=== PATIENT | female | born 1980 | race Caucasian/White ===

== ENCOUNTER 2019-08-08 01:52 | Inpatient (IN) ==
[2019-08-02 10:10] LABS: URINE SOURCE VOIDED
[2019-08-02 10:13] LABS: BASO# 0.02 X1000 (0.0-0.2); BASO% 0.3 % (0.0-0.8); EOS# 0.27 X1000 (0.0-0.7); EOS% 4.5 % (0.0-10.0); HEMATOCRIT 39.5 % (37.0-47.0); HEMOGLOBIN 13.1 g/dL (12.0-16.0); LYMPH# 1.96 X1000 (1.2-3.4); LYMPH% 32.5 % (20.5-51.1); MCH 29.5 PG (27-31); MCHC 33.2 g/dL (33-37); MONO% 8.3 % (1.7-9.3); MPV 9.2 FL (7.4-10.4); NEUT# 3.28 X1000 (1.4-6.5); NEUT% 54.4 % (42.2-75.2); PLT 263 X1000 (130-400); RBC 4.44 XMIL (4.2-5.4); RDW 12.5 % (11.5-14.5); WBC 6.03 X1000 (4.8-10.8)
[2019-08-02 10:17] LABS: BILIRUBIN URINE NEGATIVE (NEGATIVE); BLOOD URINE NEGATIVE (NEGATIVE); COLOR STRAW; GLUCOSE URINE NEGATIVE (NEGATIVE); KETONE URINE NEGATIVE (NEGATIVE); LEUKOCYTES URINE NEGATIVE (NEGATIVE); NITRITE URINE NEGATIVE (NEGATIVE); PROTEIN URINE NEGATIVE (NEGATIVE); SP GRAVITY URINE 1.005; TURBIDITY URINE CLEAR (CLEAR); UROBILINOGEN URINE NORMAL (NORMAL)
[2019-08-02 10:18] LABS: UR EPITHELIAL CELLS <10 /HPF (<10); URINE BACTERIA NEGATIVE /HPF; URINE RBC <10 /HPF (<10); URINE WBC <10 /HPF (<10)
--- NOTE | 2019-08-07 12:06 | HISTORY AND PHYSICAL ---
HISTORY OF PRESENT ILLNESS: The patient is a 39-year-old, white female, G2, P2, who has been battling irregular menses and dysmenorrhea for many years, has failed medical therapy, and recently had an endometrial ablation that did not result in success for her, and after consideration of alternatives, she has decided to proceed with hysterectomy. The patient is scheduled for surgery on 08/08/2019. PAST MEDICAL HISTORY: Significant for depression. PAST SURGICAL HISTORY: Tubal ligation, breast reduction, and endometrial ablation. PAST OB HISTORY: G2, P2. Spontaneous vaginal delivery x2. PSYCHOLOGIST PERSONNEL HISTORY: Menarche at age 11. REVIEW OF SYSTEMS: All systems were reviewed and noncontributory. FAMILY HISTORY: Significant for diabetes mellitus. SOCIAL HISTORY: Tobacco use: None. Alcohol use: None. MEDICATIONS: Celexa and Motrin. ALLERGIES: No known drug allergies. PHYSICAL EXAMINATION: VITAL SIGNS: Height 5 feet 9 inches, weight 223 pounds. Temp 98 degrees, pulse of 84, blood pressure 120/74, respirations 20. HEENT: Pupils equal, round, reactive to light and accommodation. Extraocular movements intact. Oropharynx clear. NECK: Supple. No thyromegaly. LUNGS: Clear to auscultation. HEART: Regular rate and rhythm. ABDOMEN: Bowel sounds positive. Soft, nontender. EXTREMITIES: No clubbing, cyanosis, or edema noted. NEUROLOGIC: Cranial nerves II through XII are grossly intact. Motor 5/5. ASSESSMENT AND PLAN: A 39-year-old white female with long-standing issues with irregular menses and dysmenorrhea, and has failed medical therapy as well as previous surgical therapy, and will proceed with hysterectomy and also bilateral salpingectomy. Patient counseled about the risks of surgery, including bleeding, infection, bowel or bladder injury. Surgery is scheduled for 08/08/2019. cc: Favian Alicia III, MD
[2019-08-08] MEDS ORDERED: ROBINUL ONE ×2 (07:57→09:43)
[2019-08-08] MEDS ORDERED: QUELICIN (DOSE) ONE (07:57)
[2019-08-08] MEDS ORDERED: XYLOCAINE-MPF 2% ONE (07:59)
[2019-08-08] MEDS ORDERED: DIPRIVAN 1% ONE (07:59)
[2019-08-08] MEDS ORDERED: LR 1,000 ML ONE ×2 (08:25→12:33)
[2019-08-08] MEDS ORDERED: KEFZOL 1 GM/D5W 2 GM/100 ML IVPB ONE (08:25)
[2019-08-08] MEDS ORDERED: FENTANYL ONE (09:34)
[2019-08-08] MEDS ORDERED: STERILE WATER INJ. ONE (09:43)
[2019-08-08] MEDS ORDERED: NORCURON ONE (09:43)
[2019-08-08] MEDS ORDERED: DECADRON ONE (09:43)
[2019-08-08] MEDS ORDERED: ZOFRAN ONE (09:43)
[2019-08-08] MEDS ORDERED: NEOSTIGMINE ONE (09:49)
[2019-08-08] MEDS ORDERED: EPHEDRINE ONE (10:06)
[2019-08-08 10:20] LABS: URINE SOURCE CATH
[2019-08-08 10:37] LABS: BILIRUBIN URINE NEGATIVE (NEGATIVE); BLOOD URINE NEGATIVE (NEGATIVE); COLOR YELLOW; GLUCOSE URINE NEGATIVE (NEGATIVE); KETONE URINE NEGATIVE (NEGATIVE); LEUKOCYTES URINE NEGATIVE (NEGATIVE); NITRITE URINE NEGATIVE (NEGATIVE); PROTEIN URINE NEGATIVE (NEGATIVE); SP GRAVITY URINE 1.013; TURBIDITY URINE CLEAR (CLEAR); UROBILINOGEN URINE NORMAL (NORMAL)
[2019-08-08 10:41] LABS: UR EPITHELIAL CELLS <10 /HPF (<10); URINE BACTERIA NEGATIVE /HPF; URINE RBC <10 /HPF (<10); URINE WBC <10 /HPF (<10)
[2019-08-08] MEDS ORDERED: TORADOL ONE (11:35)
[2019-08-08] MEDS ORDERED: PHENERGAN ONE (12:32)
[2019-08-08] MEDS ORDERED: DILAUDID PCA VIAL ONE (12:33)
[2019-08-08] MEDS: DILAUDID ONE ×2 (12:34→12:39)
[2019-08-08] MEDS ORDERED: MORPHINE IM PRN (12:41)
[2019-08-08] MEDS ORDERED: NORCO-5 PO PRN (12:41)
[2019-08-08] MEDS ORDERED: LEVSIN-SL SL PRN (12:41)
[2019-08-08] MEDS ORDERED: ZOFRAN IV PRN (12:41)
[2019-08-08] MEDS ORDERED: PHENERGAN IM PRN (12:41)
[2019-08-08] MEDS ORDERED: SODIUM CHLORIDE 0.9% INJ PRN (13:00)
[2019-08-08] MEDS ORDERED: DILAUDID PCA VIAL IV PRN (13:00)
[2019-08-08] MEDS ORDERED: NARCAN IV PRN (13:00)
[2019-08-08] MEDS ORDERED: PHENERGAN IV PRN (13:00)
[2019-08-08] MEDS: LR 1,000 ML IV SCH ×3 (13:26→20:26)
[2019-08-08] MEDS: MYLICON PO SCH ×4 (13:26→20:15)
[2019-08-08] MEDS: OFIRMEV 1000 MG/ISOTONIC SOLN 1,000 MG/100 ML BOTTLE IV SCH ×2 (13:59→19:44)
[2019-08-08] MEDS: TORADOL IV SCH (17:55)
[2019-08-08] MEDS: PERIDEX MT SCH ×2 (19:44→20:15)
[2019-08-08] MEDS: COLACE PO SCH ×2 (19:44→20:15)
[2019-08-08] MEDS: BENADRYL IV PRN (19:55)
--- NOTE | 2019-08-08 23:07 | OPERATIVE NOTE ---
PROCEDURE DATE: 08/08/2019 PREOPERATIVE DIAGNOSIS: Irregular menses, dysmenorrhea, not responsive to medical and surgical therapy. POSTOPERATIVE DIAGNOSIS: Irregular menses, dysmenorrhea, not responsive to medical and surgical therapy. PROCEDURE: Total abdominal hysterectomy, bilateral salpingectomy. SURGEON: Favian Alicia III, MD LANDSCAPE SUPERVISOR: Lyn Jackson DO ANESTHESIA: General. ANESTHESIOLOGIST: Dr. Babin. FINDINGS: Normal-appearing uterus, tubes and ovaries. COMPLICATIONS: None. ESTIMATED BLOOD LOSS: 400 mL SPECIMENS REMOVED: Uterus with cervix. Also bilateral distal fallopian tubes. DRAINS: Atwood to straight drain. COUNTS: All counts were correct x3. INDICATIONS: The patient is a 39-year-old white female G2, P2, status post tubal ligation, who has been fighting irregular menses and dysmenorrhea for many years. She has failed medical therapy as well as previous surgical therapy using endometrial ablation. The patient has expressed a strong desire for a permanent solution. Patient counseled about the risks of surgery including bleeding, infection and bowel or bladder injury. DESCRIPTION OF PROCEDURE: The patient was taken to OR, placed in supine position. General anesthesia was employed. She was then prepped and draped in sterile fashion with placement of Atwood catheter. A Pfannenstiel skin incision was made using a #10 scalpel. This was taken down sharply to the fascial layer. A small audrey was made in the rectus fascia. The fascial incision was extended bilaterally by curved Álvarez scissors and pickups. Then blunt and sharp dissection of the superior and inferior aspects of the rectus fascia was performed. The rectus muscle was divided midline and the peritoneal layer was entered bluntly. The peritoneal incision was then extended superiorly and inferiorly, with care taken to avoid the bladder. At this point in time, an O'Morris-O'Pedroza retractor was placed into the abdomen and a bladder blade was placed along with the upper blade, able to visualize the pelvic field. Uterus and ovaries were noted to be normal. The tubes had evidence of prior tubal ligation and only distal segments remained. At this point in time the round ligaments were isolated, grabbed with Darcy clamps and then electrocautery was used to cut between the clamps. Then 0 Vicryl suture was then used in transfixing fashion on both sides, and these were then tagged for anatomical purposes. Then Darcy free space was entered on both sides. Then a Darcy clamp was placed on the uterine side, Tahmina clamp was placed across the utero-ovarian ligament and this was cut, then ligated using 0 Vicryl in a transfixing stitch, followed with a free tie. This was performed on both sides. Good hemostasis was noted. The bladder reflection was created, then also dissected posteriorly. On both sides I clamped across the uterine vessels at the level of the cervix, and then this was cut with Álvarez scissors and ligated using 0 chromic on both sides. I then continued working down the cervix until the end, with ligating stitches of 0 chromic and then curved Tahmina clamps across the cervix. The uterus was then cut away from the cervix to allow more freedom. Then the cervix was clamped around using curved Tahmina clamps and then ligated. The Bella scissors were used to free the cervix up from the vaginal tissue. The vaginal cuff was then ligated using 0 chromic and a Tahmina stitch on both sides, then a [id number] stitch in the middle to close the vaginal cuff. Irrigation at this point in time revealed a small area of oozing underneath the bladder reflection. This was made hemostatic using electrocautery. The bilateral distal fallopian tube segments were then dissected off with Metzenbaum scissors and then clamped with Tahmina clamps on both sides. This was then cut and sewn with 0 Vicryl on both sides in a transfixing fashion, and good hemostasis was noted. Irrigation was then employed and good hemostasis was noted. The peritoneal layer was then closed using 2-0 chromic in a running fashion x1. The fascial layer was then closed using 0 Maxon in a running fashion x1. The subcutaneous layer was irrigated copiously and then electrocautery was used to obtain hemostasis. Then 2 subcutaneous interrupted stitches of 2-0 chromic were used. At this point in time the skin was reapproximated using carlotta. The patient tolerated the procedure well and was taken to the recovery room in stable condition. All counts were correct x3. cc: MD RAZIA Andrea III
[2019-08-09] MEDS: OFIRMEV 1000 MG/ISOTONIC SOLN 1,000 MG/100 ML BOTTLE IV SCH ×4 (00:52→22:01)
[2019-08-09] MEDS: BENADRYL IV PRN ×2 (00:52→06:08)
[2019-08-09] MEDS: TORADOL IV SCH ×3 (00:53→13:03)
[2019-08-09] MEDS: LR 1,000 ML IV SCH ×5 (04:36→21:55)
[2019-08-09 06:23] LABS: BASO# 0.01 X1000 (0.0-0.2); BASO% 0.1 % (0.0-0.8); EOS# 0.03 X1000 (0.0-0.7); EOS% 0.3 % (0.0-10.0); HEMATOCRIT 31.5 % (37.0-47.0); LYMPH# 1.86 X1000 (1.2-3.4); LYMPH% 20.9 % (20.5-51.1); MCH 28.8 PG (27-31); MCHC 31.7 g/dL (33-37); MCV 90.8 FL (81-99); MONO# 0.89 X1000 (0.11-0.59); MPV 9.2 FL (7.4-10.4); NEUT# 6.13 X1000 (1.4-6.5); NEUT% 68.7 % (42.2-75.2); PLT 250 X1000 (130-400); RBC 3.47 XMIL (4.2-5.4); RDW 12.1 % (11.5-14.5); WBC 8.92 X1000 (4.8-10.8)
[2019-08-09] MEDS ORDERED: SALINE LOCK IV FLUID XX ONE (07:21)
[2019-08-09] MEDS ORDERED: D/C PCA XX ONE (07:31)
[2019-08-09] MEDS ORDERED: CELEXA PO SCH (09:00)
[2019-08-09] MEDS: PERIDEX MT SCH ×2 (09:19→21:58)
[2019-08-09] MEDS: MYLICON PO SCH ×4 (09:20→21:58)
[2019-08-09] MEDS: COLACE PO SCH ×2 (09:20→21:58)
[2019-08-09] MEDS: NORCO-10 PO PRN ×2 (13:51→18:09)
[2019-08-10] MEDS: LR 1,000 ML IV SCH ×2 (00:33→05:04)
[2019-08-10] MEDS: OFIRMEV 1000 MG/ISOTONIC SOLN 1,000 MG/100 ML BOTTLE IV SCH ×2 (00:33→06:36)
[2019-08-10] MEDS: NORCO-10 PO PRN ×2 (03:21→07:52)
[2019-08-10 08:08] VITALS: BP 145/91
--- NOTE | 2019-08-11 14:09 | DISCHARGE SUMMARY ---
ADMISSION DATE: 08/08/2019 DISCHARGE DATE: 08/10/2019 ADMISSION DIAGNOSIS: A 39-year-old white female G2, P2, with long-standing issues with irregular menses and dysmenorrhea with failed medical therapy as well as previous surgical therapy for hysterectomy and bilateral salpingectomy. FINAL DIAGNOSIS: A 39-year-old white female G2, P2, with long-standing issues with irregular menses and dysmenorrhea with failed medical therapy as well as previous surgical therapy for hysterectomy and bilateral salpingectomy. PROCEDURES: ABHISHEK with bilateral salpingectomy. BRIEF HISTORY: The patient is a 39-year-old white female, G2, P2, who has been battling irregular menses and dysmenorrhea for many years, has failed medical therapy, had recent endometrial ablation that did not result in success and after consideration of alternatives, has decided to proceed with hysterectomy. The patient is scheduled for hysterectomy on 08/08/2019. PAST MEDICAL HISTORY: Significant for depression. PAST SURGICAL HISTORY: Tubal ligation, breast reduction and endometrial ablation. PAST OBSTETRIC HISTORY: G2, P2, spontaneous vaginal delivery x2. GYNECOLOGICAL HISTORY: Menarche at age 11. REVIEW OF SYSTEMS: All systems reviewed and noncontributory. FAMILY HISTORY: Significant for diabetes mellitus. SOCIAL HISTORY: Tobacco use none. Alcohol use none. MEDICATIONS: Celexa 20 mg daily and Motrin 800 mg. ALLERGIES: No known drug allergies. PHYSICAL EXAMINATION: Vital Signs: Height 5 feet 9 inches, weight 223 pounds, temp 98 degrees, pulse of 84, blood pressure 120/74, respirations 20. HEENT: Pupils equal, round, reactive to light and accommodation. Extraocular movements intact. Oropharynx clear. Neck: Supple. No thyromegaly. Lungs: Clear to auscultation. Heart: Regular rate and rhythm. Abdomen: Bowel sounds positive. Soft, nontender. Extremities: No clubbing, cyanosis, or edema noted. Neurologic: Cranial nerves 2-12 grossly intact. Motor 5/5. DTRs 2+ bilaterally. ASSESSMENT AND PLAN: A 39-year-old white female with long-standing issues with her irregular menses and dysmenorrhea, who has failed medical therapy as well as previous surgical therapy including endometrial ablation and will now proceed with hysterectomy and bilateral salpingectomy. Patient counseled about the risks of surgery including bleeding, infection, bowel or bladder injury. HOSPITAL COURSE: The patient had a ABHISHEK and bilateral salpingectomy performed on 08/08/2019 and her postoperative course, she was maintained on a [employer] pump for pain management as well as Toradol IV. Patient had a postop hemoglobin of 10.0 and hematocrit of 31.5. She was advanced on her diet as tolerated and became ambulatory and had stable vital signs and was afebrile. On postop day #2, she reported that she had positive flatus and expressed desire to be discharged to home. DISCHARGE PLANS: Patient will be discharged home. Will follow up in 1 week for staple removal. Patient instructed to call for temperature greater than 101, heavy vaginal bleeding or severe abdominal pain. Patient also given instructions on pelvic rest for 6 weeks as well as lifting precautions for 6 weeks. DISCHARGE MEDICATIONS: 1. [place] 10 dispense 20 with no refills. 2. Colace 100 mg dispensed 30 with 1 refill. 3. Iron sulfate 325 mg dispense 30 with 1 refill. 4. Motrin 800 mg dispensed 30 with 1 refill. cc: Favian Alicia III, MD
== END 2019-08-10 08:56 | disposition home or self-care (01) | DRG 743 ==
LOC: SURHOLD 01:52 → 4N 10:50
PROVIDERS: ADMIT Obstetrics & Gynecology; ATTEND Obstetrics & Gynecology